=== PATIENT | female | born 1945 | race Caucasian/White ===

== ENCOUNTER → 2017-04-22 | Outpatient (CLI) | payer OTHER, MEDICARE | LOC: BHFA 13:00 | PROVIDERS: ATTEND Internal Medicine Cardiovascular Disease | DX: I48.91 Unspecified atrial fibrillation (principal) | CPT/HCPCS: 78452; 93017; A9500; J2785 ==

== ENCOUNTER → 2017-04-26 | Outpatient (CLI) | payer OTHER, MEDICARE | LOC: FIMAGING 12:49 | PROVIDERS: ATTEND Family Medicine | DX: Z12.31 Encounter for screening mammogram for malignant neoplasm of breast (principal); Z80.3 Family history of malignant neoplasm of breast | CPT/HCPCS: G0202 ==

== ENCOUNTER → 2017-08-30 | Outpatient (CLI) | payer OTHER, MEDICARE | LOC: BHFA 15:30 | PROVIDERS: ATTEND Internal Medicine Interventional Cardiology | DX: R09.89 Other specified symptoms and signs involving the circulatory and respiratory systems (principal) ==

== ENCOUNTER 2018-01-17 11:50 | Inpatient (IN) | payer OTHER, MEDICARE ==
--- NOTE | 2018-01-17 12:13 | CPEKG ---
Heart Rate: 88 RR Interval: 682 P-R Interval: 160 QRSD Interval: 86 QT Interval: 372 QTC Interval: 450 P [place]: 70 QRS [place]: -40 T Wave [place]: 60 EKG Severity - OTHERWISE NORMAL ECG - EKG Impression: SINUS RHYTHM EKG Impression: LEFT AXIS DEVIATION Electronically Signed By: Cassy Encinas 17-Jan-2018 16:06:55
--- NOTE | 2018-01-17 12:30 | EDPHY ---
HPI/HX/ROS/PE/MDM Narrative: CHIEF COMPLAINT: Palpitations HISTORY OF PRESENT ILLNESS: This patient is an anticoagulated (Coumadin) 72 year old female complaining of palpitations and frequent diarrhea. She ahs had intermittent vomiting and diarrhea for several months. On Tuesday, she began to have worsening diarrhea with associated generalized abdominal cramping. She states "it smells chemically and I think it's my pills". She denies any new medications or recent antibiotic use. No hematochezia or melena. No known ill contacts. No unusual foods. She has appointment with a GI specialist scheduled for this . Yesterday, she noted heart palpitations and states "my heart was fluttery and I knew it was wrong". This episode lasted about two hours. Additionally, the patient was noted to be mildly hypoxic at triage. She denies any cough or shortness of breath. She generally does not wear home oxygen, and denies history of asthma or COPD. No fever, chills, chest pain, shortness of breath, palpitations, urinary complaints, headache, lightheadedness. REVIEW OF SYSTEMS: Aside from elements discussed in the HPI, a comprehensive 10-point review of systems was reviewed and is negative. PAST MEDICAL HISTORY: Atrial fibrillation s/p ablation. Hypertension. Cholecystectomy. SOCIAL HISTORY: Friend at bedside. Lives in [place]. PCP Dr. Salmon. Marine Design Engineer Dr. Galarza. VITAL SIGNS: Reviewed by me GENERAL: Well-developed, well-nourished, resting comfortably in no respiratory distress. HEENT: Atraumatic. Eyes: Left pupil abnormal. No icterus, no injection. Mouth: dry mucous membranes. No erythema or lesions. Neck: supple with no adenopathy. LUNGS: Clear to auscultation bilaterally, no wheezes, rhonchi or rales. CARDIAC: Regular rate and rhythm, no rubs, murmurs or gallops. ABDOMEN: Soft, nontender, nondistended, bowel sounds normal. BACK: No CVA tenderness. EXTREMITIES: No trauma. No edema. Range of motion is normal throughout. NEURO: Alert and oriented, grossly nonfocal. SKIN: Warm and dry, no rash. PSYCHIATRIC: Normal mentation, no agitation. Portions of this note were transcribed by a medical instructor. I personally performed a history, physical exam, medical decision making, and confirmed accuracy of information the transcribed note. ED Course: 72 y/o female presents with palpitations and diarrhea. Plan for EKG, chest x-ray , labs including CBC, chemistries, troponin. Of note, patient has been hypoxic on several occasions while in the emergency department. She has no history of pulmonary disease, no history of pulmonary embolism. She is on Coumadin. Patient is a significantly elevated white blood cell count at 17,000. Plan for CT abdomen to evaluate for diverticulitis or intra-abdominal abscesses. 12-LEAD EKG: Please see the full report in [facility]. My interpretation: Sinus rhythm rate 88. LAD. No PVCs or PACs. Chest x-ray: Interpreted as some worsening of the patient's underlying interstitial lung findings. Patient denies history of asthma, COPD, interstitial lung disease. She denies taking amiodarone. 14:[address] Canales, radiologist. CT abdomen shows mild thickening of the terminal ileum and ascending colon suggesting a low level enterocolitis. Sigmoid diverticulosis. On re-examination the patient reports feeling dehydrated. She received a L of normal saline. Trial of room air was again performed in the patient again desaturates to 86%. D-dimer is negative and in fact the patient's INR is excessively high at 5.07. Course was discussed with Dr. Muñoz. Patient will be admitted to the hospital for hypoxemia as well as ongoing diarrhea. Respiratory pathogen panel is pending at this time. MDM: Differential diagnosis for the patient's diarrhea was considered including but not limited to gastroenteritis, colitis, diverticulitis, bacterial dysentery, viral diarrhea, medication effect, and malabsorption syndrome. Differential diagnoses for the patient's hypoxemia was considered including but not limited to pneumonia, interstitial lung disease, reactive airways disease, pulmonary embolism, cardiac causes. - Data Points Imaging Results: Imaging Impressions Chest X-Ray 01/17/18 13:08 Impression: Interstitial lung disease, stable versus slightly worse than 23 months ago. If clinically indicated, consider noncontrast high-resolution chest CT to better characterize and quantify the interstitial lung disease. Was this patient on amiodarone? Abdomen CT 01/17/18 13:09 Impression: 1. Mild thickening of the terminal ileum and ascending colon suggesting a low level enterocolitis. 2. Sigmoid diverticulosis without diverticulitis. 3. Normal appendix. No renal calculus. Findings were communicated by telephone with Dr. Cassy Encinas MD at 2017 14:28 Imaging: Discussed imaging studies w/ house calls nurse practitioner Radiologist Laboratory Results: Laboratory Results 01/17/18 12:21 01/17/18 12:21 01/17/18 01/17/18 01/17/18 12:29 12:21 12:21 WBC 17.56 10^3/uL H 10^3/uL (3.80-9.50) RBC 3.50 10^6/uL L 10^6/uL (4.18-5.33) Hgb 12.0 g/dL L g/dL (12.6-16.3) Hct 32.7 % L % (38.0-47.0) MCV 93.4 fL fL (81.5-99.8) MCH 34.3 pg H pg (27.9-34.1) MCHC 36.7 g/dL g/dL (32.4-36.7) RDW 15.6 % H % (11.5-15.2) Plt Count 290 10^3/uL 10^3/uL (150-400) MPV 8.5 fL L fL (8.7-11.7) Neut % (Auto) 88.5 % H % (39.3-74.2) Lymph % (Auto) 5.4 % L % (15.0-45.0) Granite % (Auto) 4.6 % % (4.5-13.0) Eos % (Auto) 0.8 % % (0.6-7.6) Baso % (Auto) 0.2 % L % (0.3-1.7) Nucleat RBC Rel Count 0.0 % % (0.0-0.2) Absolute Neuts (auto) 15.54 10^3/uL H 10^3/uL (1.70-6.50) Absolute Lymphs (auto) 0.94 10^3/uL L 10^3/uL (1.00-3.00) Absolute Monos (auto) 0.81 10^3/uL H 10^3/uL (0.30-0.80) Absolute Eos (auto) 0.14 10^3/uL 10^3/uL (0.03-0.40) Absolute Basos (auto) 0.04 10^3/uL 10^3/uL (0.02-0.10) Absolute Nucleated RBC 0.00 10^3/uL 10^3/uL (0-0.01) Immature Gran % 0.5 % % (0.0-1.1) Immature Gran # 0.09 10^3/uL 10^3/uL (0.00-0.10) PT Pending INR Pending D-Dimer < 0.27 ug/mLFEU ug/mLFEU (0.00-0.50) Sodium 140 mEq/L mEq/L (135-145) Potassium 4.0 mEq/L mEq/L (3.5-5.2) Chloride 103 mEq/L mEq/L (97-110) Carbon Dioxide 26 mEq/l mEq/l (22-31) Anion Gap 11 mEq/L mEq/L (8-16) BUN 8 mg/dL mg/dL (7-23) Creatinine 0.7 mg/dL mg/dL (0.6-1.0) Estimated GFR > 60 Glucose 233 mg/dL H mg/dL (70-100) Calcium 8.9 mg/dL mg/dL (8.5-10.4) Troponin I < 0.012 ng/mL ng/mL (0.000-0.034) General Time Seen by Provider: 01/17/18 12:11 Initial Vital Signs: Initial Vital Signs Temperature (C) 37 C 01/17/18 11:53 Heart Rate 101 H 01/17/18 11:53 Respiratory Rate 18 01/17/18 11:53 Blood Pressure 183/75 H 01/17/18 11:53 O2 Sat (%) 91 L 01/17/18 11:53 O2 Delivery Mode Room Air O2 (L/minute) 2 Allergies/Adverse Reactions: latex Allergy (Verified 01/17/18 16:51) Rash Home Medications: Medication Instructions Recorded Atorvastatin Calcium [Lipitor 20 20 mg PO DAILY 01/17/18 mg (*)] Brimonidine 0.2% [ALPHAGAN 0.2% 1 drops LEFTEYE BID 01/17/18 (RX)] Citalopram [CeleXA] 20 mg PO DAILY 01/17/18 Diltiazem HCl [Cartia XT 240mg] 240 mg PO DAILY 01/17/18 Folic Acid [Folic Acid 1 MG (*)] 1 mg PO DAILY 01/17/18 Glimepiride [Amaryl] 4 mg PO BID 01/17/18 Herbals/Supplements -Info Only 1 ea PO DAILY 01/17/18 Losartan Potassium [Cozaar 50 mg 50 mg PO DAILY 01/17/18 (*)] Omeprazole 40 mg PO DAILY 01/17/18 Propafenone HCl [Rythmol 150mg (*)] 150 mg PO TID 01/17/18 Warfarin Sodium 3 mg PO WE@16 01/17/18 Warfarin Sodium [Coumadin] 6 mg PO SUMOTUTHFRSA@16 01/17/18 metFORMIN HCL [Glucophage 500 mg 500 mg PO BID 01/17/18 (*)] Departure - Departure Disposition: [facility] Acute Clinical Impression: Palpitations, Hypoxia Diarrhea Qualifiers: Diarrhea type: unspecified type Qualified Code(s): R19.7 - Diarrhea, unspecified Condition: Good Report Scribed for: Cassy Encinas Report Scribed by: Anel Lowe Date of Report: 01/17/18 Time of Report: 12:30
[2018-01-17 12:39] LABS: PLATELET COUNT 290 10^3/uL (150-400)
[2018-01-17] MEDS ORDERED: IOPAMIDOL (ISOVUE-300) 100 ML BTL ONE (13:20)
[2018-01-17] MEDS ORDERED: ALBUTEROL 3 ML DEYVIAL IH ONE (14:51)
[2018-01-17] MEDS ORDERED: NS 1,000 ML IV ONE (14:51)
[2018-01-17 16:06] LABS: PROTIME(PATIENT) 46.3 SEC (12.0-15.0)
[2018-01-17] MEDS ORDERED: ACETAMINOPHEN 325 MG TAB PO PRN (16:12)
[2018-01-17] MEDS ORDERED: ONDANSETRON DISINTEGRATING 4 MG TAB PO PRN (16:12)
[2018-01-17] MEDS ORDERED: ONDANSETRON 4 MG/2 ML VIAL IVP PRN (16:12)
[2018-01-17 16:24] LABS: INR 5.07 (0.83-1.16)
--- NOTE | 2018-01-17 17:42 | GHP ---
[f rep st] HISTORY AND PHYSICAL DATE OF ADMISSION: 01/17/2018 CHIEF COMPLAINT: Palpitations, nausea, vomiting. HISTORY OF PRESENT ILLNESS: A 72-year-old female with a history of paroxysmal atrial fibrillation on anticoagulation, hypertension, hyperlipidemia, IBS, presenting with palpitations. She says she has had intermittent diarrhea for years that was controlled by Imodium. However, the last few months, it has not been responding. She has 1-2 loose stools a day. The main reason she presented today was for palpitations starting last night when she was at rest. She felt short of breath with it but not dizzy. Denies any chest pain. No lower extremity edema or PND. She has always propped herself up during sleep because it feels better. A week ago, she felt feverish and achy but did not take a temperature. She has had intermittent bilious vomiting since Tuesday. She has had a dry cough. When she walks her dog about a half a block, she does not experience chest pain , shortness of breath, or palpitations. Decreased p.o. intake over the last few days. She had a colonoscopy/EGD in [place] approximately 5 years ago, said she had a polyp. She is supposed to see GI this week on . In the emergency room , she was found to be hypoxic to 84%. PAST MEDICAL HISTORY: Paroxysmal atrial fibrillation, on anticoagulation. Hypertension, hyperlipidemia, left carotid bruit, IBS, diabetes. PAST SURGICAL HISTORY: Cholecystectomy, ablation, breast reduction, eye surgery , tonsillectomy, and tubal ligation. SOCIAL HISTORY: Lives in [place]. Has 2 dogs but no birds. Here with her neighbor. 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 She smoked for 5 years less than a pack a day in the 1960s. No alcohol or illicits. FAMILY HISTORY: Father with heart failure and coronary disease. Mother with rheumatic heart disease, hypertension, stroke. PHYSICAL EXAM: VITAL SIGNS: Temperature 37, blood pressure 183/75, heart rates 71-101, respiratory 18, 84% on room air. Repeat was 91% and then 95% on 2 L. GENERAL: Obese female sitting in bed, no acute distress. HEENT: PERRLA. EOMI. Oropharynx clear. Dry mucous membranes. CV: Regular rate and rhythm. No murmurs, gallops, or rubs. No lower extremity edema. LUNGS: Crackles, left base, no wheezing. ABDOMEN: Obese, soft, nontender, nondistended. Positive bowel sounds. : No Wilcox. MUSCULOSKELETAL: 5/5 upper and lower extremity strength. NEUROLOGIC: 2 through 12 intact. PSYCHIATRIC: Alert oriented x3 next. LABS: WBC 17, hemoglobin 12, hematocrit 32, platelets 290. Sodium 140, potassium 4.0, chloride 103, carbon dioxide 26, creatinine 0.7, glucose 233, calcium 8.9. Troponin less than 0.012. INR is 5.07 Chest x-ray personally reviewed by me, peribronchial cuffing. No edema or opacity. Radiology read states progressive interstitial lung disease. Abdominal CT, mild thickening of the terminal ileum and ascending colon, suggestive of enterocolitis. Sigmoid diverticulosis without diverticulitis. EKG personally reviewed by me, normal sinus rhythm. ASSESSMENT AND PLAN: 1. Hypoxia. Unclear if this is new or chronic. Has minimal tobacco history and no toxic exposures. Radiology read CXR as ILD. No symptoms of pneumonia besides a dry cough; afebrile.Respiratory panel pending. May be atelectasis with recent illness and in bed more. If not improved, could consider a noncontrast CT. Will see how things go overnight. A BNP is pending. 2. Palpitations. Likely due to dehydration with nausea, vomiting, and decreased p.o. intake. Rate-controlled here. No evidence of infection on her CT. 3. Diarrhea: has been chronic. History of irritable bowel syndrome. She had a normal colonoscopy/EGD 5 years ago. She is to follow up with her warehouse delivery manager here this week. GI panel pending. 4. Hypertension. Resume home medications. 5. Paroxysmal atrial fibrillation. Continue Rythmol and diltiazem. Hold Coumadin with elevated INR. 6. Supratherapeutic INR. No evidence of bleeding. Likely due to recent decreased p.o. intake. Not taking any new medications. Will monitor. 7. Fatigue. She endorses over the last several months. Check a TSH. 8. Diet. Regular. 9. Deep vein thrombosis prophylaxis. She is on Coumadin. 10. Disposition. Patient warrants observation admission, given hypoxia, leukocytosis warranting intravenous fluids, and possible imaging. Can likely discharge tomorrow. /[id number]/MODL MTDD
[2018-01-17] MEDS: metFORMIN HCL 500 MG TAB PO SCH (17:50)
[2018-01-17] MEDS ORDERED: BRIMONIDINE 0.2% 5 ML OPHT.BTL LEFTEYE SCH (21:00)
[2018-01-17] MEDS: GLIMEPIRIDE 2 MG TAB PO SCH (21:49)
[2018-01-17] MEDS: PROPAFENONE HCL 150 MG TAB PO SCH (21:49)
[2018-01-18] MEDS: MELATONIN 3 MG TAB PO PRN ×2 (00:03→21:12)
[2018-01-18 05:49] LABS: PROTIME(PATIENT) 55.3 SEC (12.0-15.0)
[2018-01-18 05:50] LABS: INR 6.4 (0.83-1.16)
[2018-01-18] MEDS: metFORMIN HCL 500 MG TAB PO SCH ×2 (08:43→16:07)
[2018-01-18] MEDS ORDERED: Herbals/Supplements -Info Only PO SCH (09:00)
[2018-01-18] MEDS: PANTOPRAZOLE SODIUM 40 MG TAB PO SCH (09:48)
[2018-01-18] MEDS: PROPAFENONE HCL 150 MG TAB PO SCH ×3 (09:48→21:11)
[2018-01-18] MEDS: DILTIAZEM XR 240 MG CAP PO SCH (09:48)
[2018-01-18] MEDS: ATORVASTATIN CALCIUM 20 MG TAB PO SCH (09:48)
[2018-01-18] MEDS: CITALOPRAM 20 MG TAB PO SCH (09:48)
[2018-01-18] MEDS: LOSARTAN POTASSIUM 50 MG TAB PO SCH (09:48)
[2018-01-18] MEDS: GLIMEPIRIDE 2 MG TAB PO SCH ×2 (09:48→21:12)
[2018-01-18] MEDS: FOLIC ACID 1 MG TAB PO SCH (09:48)
[2018-01-18] MEDS: BRIMONIDINE 0.2% 5 ML OPHT.BTL LEFTEYE SCH ×2 (09:49→21:12)
[2018-01-18] MEDS ORDERED: PHYTONADIONE 100 MCG TAB PO ONE (12:18)
--- NOTE | 2018-01-18 15:00 | HOSPPROG ---
Hospitalist Progress Note Assessment/Plan: 72y female with c/o palpitations. First encounter, chart reviewed. #Suprathereputic INR -give 100mcg vit k -recheck in am -unclear etiol #Viral illness -follow -seems to be improving #Diarrhea -intermittent -follow -stable #Enterocolitis -per ct -stable #Acute hypoxemic resp failure -cont supp o2 -titrate off -ILD -consider CT chest high res if not improving #Afib -rate controlled -cont home meds #Dispo -unclear -cont evaluation in hospital -change to inpt -follow labs Subjective: Feeling better. Eager to go home. No pain. Objective: Vital Signs Temp Pulse Resp BP Pulse Ox 37.1 C 72 20 156/83 H 94 01/18/18 11:58 01/18/18 11:58 01/18/18 11:58 01/18/18 11:58 01/18/18 11:58 Laboratory Results 01/18/18 04:28 01/17/18 01/18/18 01/19/18 05:59 05:59 05:59 Intake Total 1150 Balance 1150 PT 55.3 SEC (12.0-15.0) H D 01/18/18 04:28 INR 6.40 (0.83-1.16) H* 01/18/18 04:28 - Physical Exam Constitutional: appears nourished, not in pain, obese Eyes: PERRL, anicteric sclera, EOMI Ears, Nose, Mouth, Throat: moist mucous membranes, hearing normal, ears appear normal Cardiovascular: No JVD, No tachycardia, No edema Respiratory: no respiratory distress, no rales or rhonchi, reduced air movement Gastrointestinal: normoactive bowel sounds, No tenderness, No ascites Skin: warm, normal color, No mottled Musculoskeletal: normal joint ROM, no joint effusions, generalized weakness Neurologic: AAOx3 Psychiatric: interacting appropriately, not anxious, not encephalopathic, thought process linear ICD10 Worksheet Patient Problems: Problems Problem Status Onset Palpitations Acute Diarrhea Acute Hypoxia Acute
--- NOTE | 2018-01-18 16:03 | PDMN ---
Medical Necessity Medical necessity: Change to IP, as of 01/18/18, per [employer]; los >2 mn for ongoing management of supratherapeutic INR of unclear etiology, HTN, viral illness & diarrhea; admit for further workup/ monitoring, Vit K & med management; hx AFIB on AC,HTN, diabetes & IBS; per progress note & order 01/18/18
--- NOTE | 2018-01-18 17:26 | ASMTCMCOM ---
CM Note CM Note Notes: DC needs unclear, pt normally lives alone with her two dogs and is independent in ADLs. ANJALI w/f. DC Plan: TBD Date Signed: 01/18/2018 05:26 PM Electronically Signed By:Alycia Wren RN
[2018-01-19 07:04] VITALS: BP 163/78
[2018-01-19 09:22] LABS: INR 4.29 (0.83-1.16); PROTIME(PATIENT) 40.7 SEC (12.0-15.0)
[2018-01-19] MEDS: BRIMONIDINE 0.2% 5 ML OPHT.BTL LEFTEYE SCH (10:09)
[2018-01-19] MEDS: GLIMEPIRIDE 2 MG TAB PO SCH (10:10)
[2018-01-19] MEDS: DILTIAZEM XR 240 MG CAP PO SCH (10:10)
[2018-01-19] MEDS: PROPAFENONE HCL 150 MG TAB PO SCH (10:10)
[2018-01-19] MEDS: ATORVASTATIN CALCIUM 20 MG TAB PO SCH (10:10)
[2018-01-19] MEDS: PANTOPRAZOLE SODIUM 40 MG TAB PO SCH (10:11)
[2018-01-19] MEDS: CITALOPRAM 20 MG TAB PO SCH (10:11)
[2018-01-19] MEDS: LOSARTAN POTASSIUM 50 MG TAB PO SCH (10:11)
[2018-01-19] MEDS: FOLIC ACID 1 MG TAB PO SCH (10:11)
[2018-01-19] MEDS: metFORMIN HCL 500 MG TAB PO SCH ×2 (10:11→10:17)
--- NOTE | 2018-01-19 12:12 | ASMTCMCOM ---
CM Note CM Note Notes: Spoke w/RN, pt will dc home independent. Friend will come to pick her up and take her home. CM available for any changes. DC Plan: Independent Date Signed: 01/19/2018 12:11 PM Electronically Signed By:Alycia Wren RN
--- NOTE | 2018-01-19 13:49 | GDS ---
[f rep st] DISCHARGE SUMMARY DISCHARGE DIAGNOSES: 1. Supratherapeutic INR. 2. Hypertension. 3. Upper respiratory viral illness. 4. Diarrhea. 5. Enterocolitis. 6. Acute hypoxemic respiratory failure. 7. History of atrial fibrillation. SURGERIES AND PROCEDURES DONE: CT of the abdomen. PHYSICAL EXAM: GENERAL: The patient is alert. VITAL SIGNS: Afebrile at 36.9, pulse 73, respirator y rate is 20, blood pressure is 163/78, she is saturating 90% on room air. I have seen and evaluated the patient on the day of discharge. HOSPITAL COURSE: The patient is a 72-year-old female who presented to the emergency room with compla ints of palpitation. She was evaluated and diagnosed with: 1. Supratherapeutic INR. During this hospitalization, she received 100 mcg of vitamin K. Her INR i s in the 4 range today prior to disposition. She has a home INR monitor which she will utilize on , to evaluate her level. She will follow up with her physician vice president who is in charge of her Co umadin dosing. 2. Upper respiratory viral illness. The patient is feeling significantly better. Her symptoms have resolved. Her leukocytosis is almost within normal limits and she has no further complaints of coug h. 3. Diarrhea. The patient has chronic intermittent diarrhea. This has resolved during this hospital ization. She will follow up with Gastroenterology in the outpatient setting as she was supposed to b efore. 4. Enterocolitis. This is stable per CT scan. 5. Acute hypoxemic respiratory failure. This is in the setting of acute viral illness. Per chest x -ray, the patient does have interstitial lung disease. It is recommended she follow with her primary care physician and consider a CT of her chest in the outpatient setting as well as prophylactic ster oid use. I have discussed this with her and she will follow up with her primary care physician, Dr. Claudia Salmon. 6. Hypertension. Antihypertensive medications have not been added during this hospital course, per the patient's request. She wishes to follow with Dr. Claudia Salmon for further medications and managem ent. This is reasonable at this time. 7. Atrial fibrillation. She is rate controlled. Her home medications have been continued. DISPOSITION: The patient will be discharged home independently. There are no pending studies. Carlos lo will be with her physician vice president as well as her primary care physician, Dr. Claudia Salmon. She will check her INR with her home device on 01/20/2018. DISCHARGE MEDICATIONS: Please refer to EMR form. I have not provided any prescriptions for the reggie ent at time of disposition nor have I adjusted her previously prescribed medications to the best of m y knowledge. I spent greater than 35 minutes in the care, coordination, and management of this patient's dispositi on. /[id number]/MODL
== END 2018-01-19 12:10 | disposition home or self-care (01) | DRG 152 ==
LOC: OBSVTOIN 16:15 → F3E 17:21
PROVIDERS: ADMIT Internal Medicine; ATTEND Internal Medicine
DX: J06.9 Acute upper respiratory infection, unspecified (principal); B97.89 Other viral agents as the cause of diseases classified elsewhere; J96.01 Acute respiratory failure with hypoxia; K52.9 Noninfective gastroenteritis and colitis, unspecified; E86.0 Dehydration; I48.0 Paroxysmal atrial fibrillation; R79.1 Abnormal coagulation profile; T45.515A Adverse effect of anticoagulants, initial encounter; K58.0 Irritable bowel syndrome with diarrhea; I10 Essential (primary) hypertension; E78.5 Hyperlipidemia, unspecified
CPT/HCPCS: G0378; J7613; Q9967

== ENCOUNTER → 2018-02-06 | Outpatient (CLI) | payer OTHER, MEDICARE | LOC: FIMAGING 14:26 | PROVIDERS: ATTEND Internal Medicine | DX: Z09 Encounter for follow-up examination after completed treatment for conditions other than malignant neoplasm (principal); R93.8 Abnormal findings on diagnostic imaging of other specified body structures ==

== ENCOUNTER 2018-10-08 07:24 | Inpatient (IN) | payer OTHER, MEDICARE ==
--- NOTE | 2018-10-08 07:44 | EDPHY ---
HPI/HX/ROS/PE/MDM Narrative: CHIEF COMPLAINT: "My breathing is real shallow" HPI: The patient is a 73 y/o female with a history of atrial fibrillation who arrives with her family member complaining of difficulty breathing that woke her from sleep around 04:00 this morning, about 3.5 hours ago. She felt normal yesterday and woke up this morning feeling unable to catch her breath. She used a home pulse oximeter and found her SpO2 to be 74%. She does not use O2 at home. She mentions some dyspnea with exertion at baseline, but her symptoms are much more severe today and present at rest. She has sporadic coughing while supine, but has not noticed an increase in this recently. She also has an associated mild headache. She denies fever, chest pain, abdominal pain, nausea, vomiting, diarrhea. She's had similar symptoms previously and was admitted January 2018 with a URI and hypoxemia. A chest x-ray at that time showed interstitial lung disease, but the patient reports at a follow up appointment with her PCP they did not uphold this diagnosis. She has not seen a grade teacher. REVIEW OF SYSTEMS: A comprehensive 10 system review of systems is otherwise negative aside from elements mentioned in the history of present illness. PMH: Paroxysmal atrial fibrillation, hypertension, hyperlipidemia, left carotid bruit, IBS, diabetes, cholecystectomy, ablation, breast reduction, eye surgery, tonsillectomy, tubal ligation. Prior medical records reviewed including admission 01/17/18 for palpitations and N/V. SOCIAL HISTORY: Lives in [place]. Family member at bedside. PCP: Dr. Claudia Salmon. PHYSICAL EXAM: General:Patient is alert, sitting upright, mildly tachypneic. SpO2 78% on room air. ENT:Eyes are normal to inspection. ENT inspection normal. Neck: Normal inspection. Full range of motion. Respiratory: Mildly tachypneic and globally decreased air movement. Cardiovascular: Regular rate and rhythm. Strong peripheral pulses. Normal cap refill. Abdomen:The abdomen is nontender to palpation. There are no peritoneal signs. Back: Normal to inspection. No tenderness to palpation. Skin: Normal color. No rash. Warm and dry. Extremities: Normal appearance. Full range of motion. Neuro: Oriented x3. Normal motor function. Normal sensory function. ED Course: This is a 73 y/o female who presents with a 3.5-hour history of acute onset dyspnea that woke her from sleep this morning. Her home pulse oximeter showed 74 % and here she was 78% on room air. A prior admission for a URI and hypoxemia indicated interstitial lung disease on her chest x-ray and recommended prophylactic steroid use; however, the patient reports follow up imaging did not support this diagnosis and she is not being treated for any respiratory disease. She is tachypneic on exam with globally decreased air movement. With 4LPM supplemental O2, her SpO2 is now 92%. Suspect respiratory infection most likely cause for symptoms. Plan for IV, labs, flu swab, chest x-ray. Chest x-ray: airways disease, stable from prior. WBC elevated at 18. Flu swab negative. Reassessed patient and discussed findings. I've found no clear etiology for her symptoms at this time. Due to pronounced hypoxemia, elevated WBC, and ongoing symptoms, I've recommended admission for further care. She agrees with this plan. Spoke with hospitalist service. Dr. Muñoz accepts admission. - Data Points Imaging Results: Imaging Impressions Chest X-Ray 10/08/18 07:31 Impression: 1. Bronchitis/airways disease. 2. Minimal cardiomegaly. No failure. Imaging: I viewed and interpreted images myself Laboratory Results: Laboratory Results 10/08/18 07:49 10/08/18 07:49 10/08/18 10/08/18 10/08/18 08:00 07:49 07:49 WBC RBC Hgb Hct MCV MCH MCHC RDW Plt Count MPV Neut % (Auto) Lymph % (Auto) Hudson % (Auto) Eos % (Auto) Baso % (Auto) Nucleat RBC Rel Count Absolute Neuts (auto) Absolute Lymphs (auto) Absolute Monos (auto) Absolute Eos (auto) Absolute Basos (auto) Absolute Nucleated RBC Immature Gran % Immature Gran # PT 18.7 SEC H SEC (12.0-15.0) INR 1.55 H (0.83-1.16) Sodium 138 mEq/L mEq/L (135-145) Potassium 4.2 mEq/L mEq/L (3.5-5.2) Chloride 106 mEq/L mEq/L (97-110) Carbon Dioxide 26 mEq/l mEq/l (22-31) Anion Gap 6 mEq/L mEq/L (6-14) BUN 11 mg/dL mg/dL (7-23) Creatinine 0.7 mg/dL mg/dL (0.6-1.0) Estimated GFR > 60 Glucose 240 mg/dL H mg/dL (70-100) Calcium 9.2 mg/dL mg/dL (8.5-10.4) Troponin I < 0.012 ng/mL ng/mL (0.000-0.034) NT-Pro-B Natriuret Pep 277 pg/mL pg/mL (0-450) Nasal Influenza A PCR Nasal Influenza B PCR 10/08/18 10/08/18 07:49 07:21 WBC 18.84 10^3/uL H 10^3/uL (3.80-9.50) RBC 3.54 10^6/uL L 10^6/uL (4.18-5.33) Hgb 12.6 g/dL g/dL (12.6-16.3) Hct 34.5 % L % (38.0-47.0) MCV 97.5 fL fL (81.5-99.8) MCH 35.6 pg H pg (27.9-34.1) MCHC 36.5 g/dL g/dL (32.4-36.7) RDW 15.7 % H % (11.5-15.2) Plt Count 265 10^3/uL 10^3/uL (150-400) MPV 8.1 fL L fL (8.7-11.7) Neut % (Auto) 86.6 % H % (39.3-74.2) Lymph % (Auto) 6.8 % L % (15.0-45.0) Hudson % (Auto) 4.6 % % (4.5-13.0) Eos % (Auto) 1.3 % % (0.6-7.6) Baso % (Auto) 0.3 % % (0.3-1.7) Nucleat RBC Rel Count 0.0 % % (0.0-0.2) Absolute Neuts (auto) 16.33 10^3/uL H 10^3/uL (1.70-6.50) Absolute Lymphs (auto) 1.28 10^3/uL 10^3/uL (1.00-3.00) Absolute Monos (auto) 0.86 10^3/uL H 10^3/uL (0.30-0.80) Absolute Eos (auto) 0.24 10^3/uL 10^3/uL (0.03-0.40) Absolute Basos (auto) 0.06 10^3/uL 10^3/uL (0.02-0.10) Absolute Nucleated RBC 0.00 10^3/uL 10^3/uL (0-0.01) Immature Gran % 0.4 % % (0.0-1.1) Immature Gran # 0.07 10^3/uL 10^3/uL (0.00-0.10) PT INR Sodium Potassium Chloride Carbon Dioxide Anion Gap BUN Creatinine Estimated GFR Glucose Calcium Troponin I NT-Pro-B Natriuret Pep Nasal Influenza A PCR NEGATIVE FOR FLU A (NEGATIVE) Nasal Influenza B PCR NEGATIVE FOR FLU B (NEGATIVE) General Time Seen by Provider: 10/08/18 07:30 Initial Vital Signs: Initial Vital Signs Temperature (C) 36.7 C 10/08/18 07:24 Heart Rate 75 10/08/18 07:24 Respiratory Rate 18 10/08/18 07:24 Blood Pressure 184/69 H 10/08/18 07:24 O2 Sat (%) 78 L 10/08/18 07:24 O2 Delivery Mode Nasal Cannula O2 (L/minute) 2 Allergies/Adverse Reactions: latex Allergy (Verified 10/08/18 07:24) Rash Home Medications: Medication Instructions Recorded Atorvastatin Calcium [Lipitor 20 20 mg PO DAILY 01/17/18 mg (*)] Brimonidine 0.2% [Alphagan 0.2%] 1 drops LEFTEYE BID 01/17/18 Citalopram [CeleXA 20 MG] 20 mg PO DAILY 01/17/18 Diltiazem HCl [Cartia XT 240mg] 240 mg PO DAILY 01/17/18 Folic Acid [Folic Acid 1 MG (*)] 1 mg PO DAILY 01/17/18 Glimepiride [Amaryl] 4 mg PO BID 01/17/18 Herbals/Supplements -Info Only 1 ea PO DAILY 01/17/18 Losartan Potassium [Cozaar 50 mg 50 mg PO DAILY 01/17/18 (*)] Omeprazole 40 mg PO DAILY 01/17/18 Propafenone HCl [Rythmol 150mg (*)] 150 mg PO TID 01/17/18 Warfarin Sodium 3 mg PO WE@16 01/17/18 Warfarin Sodium [Coumadin] 6 mg PO SUMOTUTHFRSA@16 01/17/18 metFORMIN HCL [Glucophage 500 mg 500 mg PO BID 01/17/18 (*)] Acetaminophen [Tylenol 325mg (*)] 650 mg PO Q4HRS PRN tab 01/19/18 Departure - Departure Disposition: [facility] Inpatient Acute Clinical Impression: Hypoxemia Dyspnea Qualifiers: Dyspnea type: shortness of breath Qualified Code(s): R06.02 - Shortness of breath; R06.00 - Dyspnea, unspecified; R06.01 - Orthopnea Condition: Fair Referrals: Claudia Salmon MD [Primary Care Provider] - As per Instructions Report Scribed for: Mauricio Coley Report Scribed by: Genet Allison Date of Report: 10/08/18 Time of Report: 07:54 Physician Review and Approval Statement: Portions of this note were transcribed by an ED scribe. I personally performed the history, physical exam, and medical decision making; and confirm the accuracy of the information in the transcribed note.
[2018-10-08 08:04] LABS: PLATELET COUNT 265 10^3/uL (150-400)
[2018-10-08 08:13] LABS: INR 1.55 (0.83-1.16); PROTIME(PATIENT) 18.7 SEC (12.0-15.0)
[2018-10-08] MEDS ORDERED: ONDANSETRON 4 MG/2 ML VIAL IVP PRN (09:24)
[2018-10-08] MEDS ORDERED: ONDANSETRON DISINTEGRATING 4 MG TAB PO PRN (09:24)
[2018-10-08] MEDS ORDERED: LOPERAMIDE HCL 2 MG CAP PO PRN (12:49)
[2018-10-08] MEDS: ACETAMINOPHEN 325 MG TAB PO PRN (13:31)
--- NOTE | 2018-10-08 13:34 | GHP ---
DATE OF ADMISSION: 10/08/2018 CHIEF COMPLAINT: Shortness of breath, hypoxia. HISTORY OF PRESENT ILLNESS: A 73-year-old female with paroxysmal atrial fibrillation, hypertension, hyperlipidemia, presenting with shortness of breath. She woke up at 4 a.m. this morning to go to the restroom and when walking back to bed, she was unable to catch her breath. She checked her home pulse oximeter and oxygen saturation was 74. She does not use oxygen. She has had a dry cough for 1 month and a runny nose. No fevers, chills, or sweats. Denies lower extremity edema, PND, or pillow orthopnea. She walks her dog daily a half a block, does not have shortness of breath or chest pain with that. She was admitted in January 2018 with URI and hypoxemia. At that time, there was a question of ILD. She did not follow up with a web application developer. No recent travel. Does not have any exotic pets or birds. No past work exposures. REVIEW OF SYSTEMS: I completed 10-point review of systems, negative, except as noted per HPI. PAST MEDICAL HISTORY: Paroxysmal atrial fibrillation, hypertension, hyperlipidemia, left carotid bruit, IBS, diabetes. PAST SURGICAL HISTORY: Cholecystectomy, cardiac ablation, breast reduction, eye surgery, tonsillectomy, tubal ligation. FAMILY HISTORY: Father with CHF, coronary disease. Mom rheumatic heart disease. SOCIAL HISTORY: Lives in [place]. With a social smoker in the 60s. 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 Worked for [employer]. No metal or inhalant exposure. No birds. ALLERGIES: Latex. HOME MEDICATIONS: Melatonin, loperamide as needed, Coumadin 6 mg Tuesday, Tuesday, Tuesday, 3 every other day, metformin 500 mg b.i.d., Rythmol 150 mg b.i.d., omeprazole 40 daily, losartan 50 mg daily, herbal supplement, Amaryl 4 mg b.i.d., folic acid, diltiazem 240 mg daily, citalopram 20 mg daily, Alphagan eye drops, atorvastatin 20 mg daily, Tylenol. PHYSICAL EXAMINATION: VITAL SIGNS: Temperature 36.7, blood pressure is 159/85 , heart rate in the 70s, respirations 18, 92% on 2 L, 78% on room air. GENERAL : She is obese, but no in acute distress. HEENT: PERRLA. Moist mucous membranes. CV: Regular rate and rhythm. No murmurs, gallops, or rubs. No lower extremity edema and edema. LUNGS: Diminished throughout, but no wheezes or crackles. ABDOMEN: Obese, soft, nontender, nondistended. Positive bowel sounds. : No Wilcox. MUSCULOSKELETAL: 5/5 upper and lower extremity strength. NEUROLOGIC: 2 through 12 intact. PSYCH: Alert and oriented x3. LABORATORY/IMAGING: WBC is 18, hemoglobin 12, hematocrit 34, platelets 265. INR is 1.5. D-dimer 0.27. Sodium 138, potassium 4.2, chloride 106, carbon dioxide 26, creatinine 0.7, glucose 240, calcium 9.2. Troponin less than 0.012. BNP is 277. Negative for influenza. Negative respiratory panel. Chest x-ray personally reviewed by me no opacity or effusion. EKG is pending. ASSESSMENT/PLAN: 1. Acute hypoxic respiratory failure: Unclear etiology. No evidence of pneumonia on x-ray. Negative respiratory panel. Denies fevers or other infectious symptoms at home. Initial troponin negative. An EKG is pending. BNP is normal. Reviewed [facility] records and she had a normal Lexiscan nuclear stress in April of 2017. We will check an ABG. Echocardiogram for shunt. Discussed with Dr. Siddiqui who will see in clinic for formal PFTs and CT. 2. Leukocytosis: She is afebrile. No evidence of pneumonia. Denies other infectious symptoms. May be reactive or due to dehydration. Will repeat. 3. Paroxysmal atrial fibrillation: NSR. Coumadin; INR is subtherapeutic. 4. Hypertension. Resume home medications. 5. Hyperlipidemia: Statin. 6. Irritable bowel syndrome. Loperamide as needed. 7. Diabetes. Metformin and Amaryl. 8. Diet: Regular. 9. Deep venous thrombosis prophylaxis: On Coumadin. DISPOSITION: Patient warrants observation admission given acute hypoxia warranting further evaluation with echo, possible CT scan. /[id number]/MODL MTDD
[2018-10-08] MEDS ORDERED: WARFARIN SODIUM 3 MG TAB PO SCH (16:00)
[2018-10-08] MEDS: PROPAFENONE HCL 150 MG TAB PO SCH (20:52)
[2018-10-08] MEDS: MELATONIN 3 MG TAB PO SCH (20:52)
[2018-10-08] MEDS: metFORMIN HCL 500 MG TAB PO SCH (20:52)
[2018-10-08] MEDS: GLIMEPIRIDE 2 MG TAB PO SCH (20:52)
[2018-10-08] MEDS: BRIMONIDINE 0.2% 5 ML OPHT.BTL LEFTEYE SCH (22:33)
[2018-10-09 05:07] LABS: INR 1.75 (0.83-1.16); PROTIME(PATIENT) 20.5 SEC (12.0-15.0)
[2018-10-09] MEDS ORDERED: Herbals/Supplements -Info Only PO SCH (09:00)
--- NOTE | 2018-10-09 09:55 | ASMTCMCOM ---
CM Note CM Note Notes: Pt is a 73 y/o female admitted for hypoxia and shortness of breath. It is uncertain if pt will have any d/c needs at this time. No therapies ordered. CM to follow. Plan: TBD Date Signed: 10/09/2018 09:54 AM Electronically Signed By:STEPHANIE Hernandez
[2018-10-09] MEDS: CITALOPRAM 20 MG TAB PO SCH (10:13)
[2018-10-09] MEDS: PROPAFENONE HCL 150 MG TAB PO SCH ×2 (10:13→20:59)
[2018-10-09] MEDS: metFORMIN HCL 500 MG TAB PO SCH ×2 (10:13→20:59)
[2018-10-09] MEDS: DILTIAZEM XR 240 MG CAP PO SCH (10:13)
[2018-10-09] MEDS: LOSARTAN POTASSIUM 50 MG TAB PO SCH (10:13)
[2018-10-09] MEDS: FOLIC ACID 1 MG TAB PO SCH (10:13)
[2018-10-09] MEDS: ATORVASTATIN CALCIUM 20 MG TAB PO SCH (10:13)
[2018-10-09] MEDS: PANTOPRAZOLE SODIUM 40 MG TAB PO SCH (10:13)
[2018-10-09] MEDS: GLIMEPIRIDE 2 MG TAB PO SCH ×2 (10:14→20:59)
[2018-10-09] MEDS: BRIMONIDINE 0.2% 5 ML OPHT.BTL LEFTEYE SCH ×2 (10:29→20:59)
--- NOTE | 2018-10-09 11:03 | ECHO ---
[email or web address] [address] Main: [phone] Fax: Transthoracic Echocardiogram Name: SIMEON CHAPPELL MR#: [id number] Study Date: 10/09/2018 Study Time: 09:31 AM Date of : 1945 Age: 73 year(s) Height: 157.5 cm (62 in.) Weight: 78.93 kg (174 lb.) BSA: 1.8 m2 Gender: Female Examination: Echo Indication: Hypoxia/SOB Image Quality: Good Contrast: Requested by: Kori Muñoz BP: 176 mmHg/94 mmHg Heart Rate: Rhythm: Indication: Hypoxia/SOB Procedure Staff Jukebox Routeman: Judith Reina RDCS Reading Physician: Jean Henderson MD Requesting Provider: Conclusions: Mild concentric LV hypertrophy. Normal global systolic LV function. The ejection fraction is estimated to be 70-75 %. Mild mitral valve leaflet calcification is present. Trivial mitral valve regurgitation. Trivial tricuspid valve regurgitation. Measurements: Chambers Valvular Assessment AV/MV Valvular Assessment TV/PV Normal Normal Normal Name Value Range Name Value Range Name Value Range Ao Tori (MM): 3.1 cm (2.2 cm-3.7 AV Vmax: 1.34 m/s (1 m/s-1.7 TR Vmax: 2.46 mm/s ( - ) cm) m/s) TR PGmax: 24 mmHg ( - ) IVSd (2D): 0.7 cm (0.6 cm-1.1 AV meanP mmHg ( - ) syst. PAP: 29 mmHg ( - ) cm) MV E Vmax: 1.08 m/s ( - ) LVDd (2D): 4.6 cm (3.9 cm-5.3 MV A Vmax: 1.32 m/s ( - ) cm) MV E/A: 0.82 ( - ) LVDs (2D): 2.7 cm (2.1 cm-4 cm) LVPWd (2D): 1.1 cm ( - ) LVEF (BP): 74 % (>=55 %) EF Range: 70-75 % Continued Measurements: Chambers Valvular Assessment AV/MV Valvular Assessment TV/PV Name Value Name Value Name Value LADs: 3.3 cm MV E' Septal: 0.07 m/s CVP (est.): 5 mmHg LADs Lon.6 cm MV E/E' Septal: 16.00 LA Area: 18.8 cm2 MV E/E' Lateral: 15.40 Patient: SIMEON CHAPPELL Study Date: 10/09/2018 Page 1 of 2 09:31 AM LA Volume: 55 ml LA Volume Index: 30.6 ml/m2 Additional Vessels Name Value Ao Ascendin.3 cm Findings: Left Ventricle: Normal size left ventricle. Mild concentric LV hypertrophy. Normal global systolic LV function. The ejection fraction is estimated to be 70-75 %. No regional wall motion abnormality. Right Ventricle: Normal size right ventricle. Left Atrium: The left atrium is mildly dilated. Right Atrium: The right atrium is normal in size. Mitral Valve: Mild mitral valve leaflet calcification is present. Trivial mitral valve regurgitation. Aortic Valve: The aortic valve is normal in appearance and function. The aortic valve is tri-leaflet. Tricuspid Valve: The tricuspid valve is normal in appearance and function. Trivial tricuspid valve regurgitation. Pulmonic Valve: The pulmonic valve is normal in appearance and function. Trivial pulmonic valve regurgitation. Aorta: The aorta is normal. Pericardium: No pericardial effusion. There is pericardial fat. (No Signature Object) Patient: SIMEON CHAPPELL Study Date: 10/09/2018 Page 2 of 2 09:31 AM [id number]
--- NOTE | 2018-10-09 15:13 | HOSPPROG ---
Hospitalist Progress Note Assessment/Plan: [facility] Patient Name: SIMEON CHAPPELL Rpt#: [id number] Unit Number: [id number] Attending/ER Physician: Kori Muñoz MD Patient Type: ADM Jenny Adm Date/Source: 10/08/18 EMR Discharge Date: Primary Carrier: MEDICARE INPATIENT A 73-year-old female with paroxysmal atrial fibrillation, hypertension, hyperlipidemia, presenting with shortness of breath. She woke up at 4 a.m. to go to the restroom and when walking back to bed, she was unable to catch her breath. She checked her home pulse oximeter and oxygen saturation was 74. She does not use oxygen. She was admitted in January 2018 with URI and hypoxemia. At that time, there was a question of ILD. * Acute hypoxic respiratory failure -chest x ray shows bronchitis, no definite pna -negative respiratory panel -BNP is stable -echo shows mild lV hypertrophy, ef of 70-75% -d dimer is stable (she is on Coumadin) -poss ILD -will check PFT's * Leukocytosis: She is afebrile * Paroxysmal atrial fibrillation in normal sinus rhythm: -INR is subtherapeutic, said she checks it weekly and usually is therapeutic * Hypertension. Resume home medications. *Hyperlipidemia: Statin. * Irritable bowel syndrome. Loperamide as needed. * Diabetes. Metformin and Amaryl. *Plan; WBC is trending up-will recheck in the morning to be sure she trends down , will check a procalcitonin. Subjective: Simeon said she is feeling better overall. Objective: Vital Signs Temp Pulse Resp BP Pulse Ox 36.7 C 71 19 151/72 H 94 10/09/18 12:00 10/09/18 12:00 10/09/18 12:00 10/09/18 12:00 10/09/18 12:00 Laboratory Results 10/09/18 04:35 10/08/18 10/09/18 10/10/18 05:59 05:59 05:59 Intake Total 250 Balance 250 PT 20.5 SEC (12.0-15.0) H 10/09/18 04:35 INR 1.75 (0.83-1.16) H 10/09/18 04:35 - Physical Exam Constitutional: no apparent distress, appears nourished, not in pain Eyes: PERRL Ears, Nose, Mouth, Throat: hearing normal Cardiovascular: regular rate and rhythym Respiratory: no respiratory distress Gastrointestinal: normoactive bowel sounds Skin: warm Musculoskeletal: full muscle strength Neurologic: AAOx3 Psychiatric: interacting appropriately ICD10 Worksheet Patient Problems: Problems Problem Status Onset Dyspnea Acute Hypoxemia Acute Diarrhea Acute Hypoxia Acute Palpitations Acute
[2018-10-09] MEDS ORDERED: WARFARIN SODIUM 3 MG TAB PO SCH (16:00)
[2018-10-09] MEDS ORDERED: ALBUTEROL 3 ML DEYVIAL IH ONE (17:30)
--- NOTE | 2018-10-09 17:41 | PDMN ---
Medical Necessity Medical necessity: Pt meets IP criteria as of 10/09/2018 per and MCG PG-RF ( Respiratory Failure GRG); est los > 2 mn for ongoing tx and management of acute hypoxic respiratory failure (72% RA) in the setting of bronchitis with leukocytosis; requiring respiratory support, further workup and serial labs.
[2018-10-09] MEDS: MELATONIN 3 MG TAB PO SCH (23:54)
[2018-10-10] MEDS ORDERED: hydrALAZINE 20 MG/ML VIAL IVP PRN (04:54)
[2018-10-10] MEDS: ACETAMINOPHEN 325 MG TAB PO PRN (05:06)
[2018-10-10 05:47] LABS: PLATELET COUNT 202 10^3/uL (150-400)
[2018-10-10 05:51] LABS: INR 1.88 (0.83-1.16); PROTIME(PATIENT) 21.7 SEC (12.0-15.0)
[2018-10-10] MEDS: PROPAFENONE HCL 150 MG TAB PO SCH (09:30)
[2018-10-10] MEDS: ATORVASTATIN CALCIUM 20 MG TAB PO SCH (09:30)
[2018-10-10] MEDS: CITALOPRAM 20 MG TAB PO SCH (09:30)
[2018-10-10] MEDS: GLIMEPIRIDE 2 MG TAB PO SCH (09:30)
[2018-10-10] MEDS: PANTOPRAZOLE SODIUM 40 MG TAB PO SCH (09:30)
[2018-10-10] MEDS: LOSARTAN POTASSIUM 50 MG TAB PO SCH (09:30)
[2018-10-10] MEDS: FOLIC ACID 1 MG TAB PO SCH (09:30)
[2018-10-10] MEDS: DILTIAZEM XR 240 MG CAP PO SCH (09:31)
[2018-10-10] MEDS: metFORMIN HCL 500 MG TAB PO SCH (09:31)
[2018-10-10] MEDS: BRIMONIDINE 0.2% 5 ML OPHT.BTL LEFTEYE SCH (09:31)
--- NOTE | 2018-10-10 10:52 | ASMTCMCOM ---
CM Note CM Note Notes: Pts case discussed w/ TERRELL Lawson. Pt is up and independent in room. Pt will most likely not have any d/c needs. CM available for changes. Plan: Independent Date Signed: 10/10/2018 10:51 AM Electronically Signed By:STEPHANIE Hernandez
[2018-10-10 12:18] VITALS: BP 139/71
[2018-10-10] MEDS ORDERED: PNEUMOC 13-VAL CONJ-DIP CRM/PF 0.5 ML SYR (PREVNAR 13) IM ONE (13:51)
--- NOTE | 2018-10-10 18:09 | PDDCSUM ---
Discharge Summary Discharge Summary: Robbie Gonzalez was admitted with hypoxia. She was walking at home and felt short of breath and checked her home pulse ox which she says read 74%. In the ER D dimer was negative, CXR did not reveal any infiltrate. BNP was WNL as well. Any echocardiogram was obtained which showed normal LVEF. Patient reportedly was seen previously and there was concern that she had ILD but she never followed up with pulmonology as she was supposed to. She remained with normal oxygen saturations while in hospital. She was set up for follow up with Robbie Siddiqui who would obtain a CT for ILD and obtain PFTs at her outpatient apt. She was discharged in good condition to follow up with Dr. Siddiqui in his clinic. Discharge diagnosis - hypoxia, possibly ILD Disposition- Home independent Follow up- PCP and with Robbie Siddiqui for ILD workup, high res CT chest
--- NOTE | 2018-10-11 15:46 | CPEKG ---
Test Reason : OPEN Blood Pressure : / mmHG Vent. Rate : 076 BPM Atrial Rate : 075 BPM P-R Int : 152 ms QRS Dur : 083 ms QT Int : 405 ms P-R-T Axes : -05 -28 041 degrees QTc Int : 456 ms Sinus rhythm Borderline left axis deviation Abnormal R-wave progression, early transition Minimal ST elevation, consider inferior injury Confirmed by Jacob Taylor ([id number]) on 10/11/2018 3:46:07 PM Referred By: Confirmed By:Jacob Taylor
== END 2018-10-10 14:25 | disposition home or self-care (01) | DRG 189 ==
LOC: F3E 10:24 → OBSVTOIN 10-09 17:27
PROVIDERS: ADMIT Internal Medicine; ATTEND Internal Medicine
DX: J96.01 Acute respiratory failure with hypoxia (principal); J84.9 Interstitial pulmonary disease, unspecified; D72.829 Elevated white blood cell count, unspecified; I48.0 Paroxysmal atrial fibrillation; I10 Essential (primary) hypertension; E78.5 Hyperlipidemia, unspecified; E11.9 Type 2 diabetes mellitus without complications; Z23 Encounter for immunization
CPT/HCPCS: G0009; G0378; J0360; J7613

== ENCOUNTER 2018-10-12 23:18 | Inpatient (IN) | payer OTHER, MEDICARE ==
--- NOTE | 2018-10-12 23:29 | EDPHY ---
H & P Stated Complaint: htn, sob Time Seen by Provider: 10/12/18 23:29 HPI/ROS: HPI CHIEF COMPLAINT: Shortness of breath with recent hospitalization. HISTORY OF PRESENT ILLNESS: Very pleasant 73-year-old female, presents back to the emergency room after she was recently admitted and discharged for shortness of breath. She presents back to the emergency room this evening with shortness of breath. She states that at home she had 85% pulse ox has been feeling short of breath and fatigue. She endorses a cough but nonproductive no wheezing. Denies chest pain. She states that she was admitted on 10/08/18. She presents back with worsening shortness of breath. She reports that she is not as short of breath as she was last time where she reports 74% O2 sat today she reports 85% pulse ox at home. She is due to follow up with pulmonology and have a high-resolution CT of her chest however this is not scheduled till later in the month. Past Medical History: Significant medical history for AFib, hypertension, hyperlipidemia, diabetes, IBS Past Surgical History: Eye surgery, tubal, breast reduction Social History: Denies drugs alcohol tobacco. Family History: Noncontributory ROS REVIEW OF SYSTEMS: 10 Systems were reviewed and negative with the exception of the elements mentioned in the history of present illness. Exam Constitutional nontoxic, triage nursing summary reviewed, vital signs reviewed , awake/alert. Vital signs noted at triage. 91% room air sat. Hypertension. Eyes normal conjunctivae and sclera, EOMI, PERRLA. HENT normal inspection, atraumatic, moist mucus membranes, no epistaxis, neck supple/ no meningismus, no raccoon eyes. Respiratory mildly dyspneic, clear to auscultation bilaterally, normal breath sounds, no respiratory distress, no wheezing. Cardiovascular rate normal, regular rhythm, no murmur, no edema, distal pulses normal. Gastrointestinal soft, non-tender, no rebound, no guarding, normal bowel sounds, no distension, no pulsatile mass. Genitourinary no CVA tenderness. Musculoskeletal no midline vertebral tenderness, full range of motion, no calf swelling, no tenderness of extremities, no meningismus, good pulses, neurovascularly intact. Skin pink, warm, & dry, no rash, skin atraumatic. Neurologic awake, alert and oriented x 3, AAOx3, moves all 4 extremities equally, motor intact, sensory intact, CN II-XII intact, normal cerebellar, normal vision, normal speech. Psychiatric normal mood/affect. Heme/Lymph/Immune no lymphadenopathy. Differential Diagnosis: Differential diagnosis includes but is not limited to: ACS, atypical chest pain, pneumothorax, pneumonia, pulmonary embolism, aortic dissection, congestive heart failure, tumor, musculoskeletal pain, esophageal pain, GERD, peptic ulcer disease, pancreatitis Medical Decision Making: Plan for this patient IV establishment IV fluid bolus , chest x-ray EKG troponin, basic blood work, will review her previous discharge summary, and workup. Most likely plan for supplemental oxygen admission. Re-evaluation: EKG interpretation by me on record in [facility] [employer] system. Impression time of EKG 2344, sinus rhythm rate of 75 no acute ischemia. Subtle T-wave abnormalities V1 V2 V3. Somewhat changed from previous EKG. Plan for patient shortness of breath CT angiogram of the chest rule out pulmonary infiltrate, PE, other lung pathology. CT angiogram chest shows no evidence of PE. However does shows coronary artery disease with calcification along the LAD, thyroid enlargement No pneumonia. Called to me by Dr. Baum. Troponin negative. Plan for hospital admission for dyspnea. 0252: Patient ambulated short distance to the bathroom then went back to her ER room. She is placed on pulse ox as she appeared very labored after getting back from her room and her sat was 76%. She required being placed on supplemental oxygen 2 L and she slowly came up with good waveform from 76% to 92 %. No significant wheezing. Due to this I have ordered her DuoNeb breathing treatment. Will re-evaluate. Additionally plan for admission spoke with the hospitalist service Dr. Briscoe. He accepts Source: Patient - Personal History Current Tetanus Diphtheria and Acellular Pertussis (TDAP): Unsure - Medical/Surgical History Hx Asthma: No Hx Chronic Respiratory Disease: Yes Hx Diabetes: Yes Hx Cardiac Disease: Yes Hx Renal Disease: No Hx Cirrhosis: No Hx Alcoholism: No Hx HIV/AIDS: No Hx Splenectomy or Spleen Trauma: No Other PMH: HTN, Afib, heart ablation, choly, breast reduction, tubal ligation LASER SURGERY WITH STENT IN LEFT EYE , CATARACT SURGERY - Social History Smoking Status: Former smoker Constitutional: Initial Vital Signs Temperature (C) 36.6 C 10/12/18 23:23 Heart Rate 89 10/12/18 23:23 Respiratory Rate 18 10/12/18 23:23 Blood Pressure 172/66 H 10/12/18 23:23 O2 Sat (%) 91 L 10/12/18 23:23 O2 Delivery Mode Nasal Cannula O2 (L/minute) 1 Allergies/Adverse Reactions: latex Allergy (Verified 10/08/18 07:24) Rash Home Medications: Medication Instructions Recorded Atorvastatin Calcium [Lipitor 20 20 mg PO DAILY 01/17/18 mg (*)] Brimonidine 0.2% [Alphagan 0.2%] 1 drops LEFTEYE BID 01/17/18 Citalopram [CeleXA 20 MG] 20 mg PO DAILY 01/17/18 Diltiazem HCl [Cartia XT 240mg] 240 mg PO DAILY 01/17/18 Folic Acid [Folic Acid 1 MG (*)] 1 mg PO DAILY 01/17/18 Glimepiride [Amaryl] 4 mg PO BID 01/17/18 Herbals/Supplements -Info Only 1 ea PO DAILY 01/17/18 Losartan Potassium [Cozaar 50 mg 50 mg PO DAILY 01/17/18 (*)] Omeprazole 40 mg PO DAILY 01/17/18 Propafenone HCl [Rythmol 150mg (*)] 150 mg PO BID 01/17/18 Warfarin Sodium 3 mg PO SUWEFR@1600 01/17/18 Warfarin Sodium [Coumadin] 6 mg PO MOTUTHSA@1600 01/17/18 metFORMIN HCL [Glucophage 500 mg 500 mg PO BIDMEAL 01/17/18 (*)] Acetaminophen [Tylenol 325mg (*)] 650 mg PO Q4HRS PRN tab 01/19/18 Loperamide HCl [Imodium 2 mg (*)] 2 - 4 mg PO PRN PRN 10/08/18 Melatonin [Melatonin 3 MG (*)] 3 mg PO HS 10/08/18 Medical Decision Making - Data Points Laboratory Results: Laboratory Results 10/14/18 04:40 10/13/18 07:48 Medications Given: Acetaminophen (Tylenol) 650 mg PO Q4HRS PRN PRN Reason: Pain, Mild/Fever, Can Take PO Stop: 04/11/19 02:48 Last Admin: 10/14/18 22:00 Dose: 650 mg Atorvastatin Calcium (Lipitor) 20 mg PO DAILY [facility] Stop: 04/12/19 08:59 Last Admin: 10/14/18 10:04 Dose: 20 mg Brimonidine Tartrate (Alphagan 0.2%) 1 drops LEFTEYE BID [facility] Stop: 04/11/19 20:59 Last Admin: 10/14/18 22:02 Dose: 1 drop Citalopram Hydrobromide (Celexa) 20 mg PO DAILY [facility] Stop: 04/11/19 11:14 Last Admin: 10/14/18 10:04 Dose: 20 mg Diltiazem HCl (Dilacor Xr) 240 mg PO DAILY [place] Stop: 04/11/19 11:14 Last Admin: 10/14/18 10:03 Dose: 240 mg Folic Acid (Folic Acid) 1 mg PO DAILY [facility] Stop: 04/11/19 11:14 Last Admin: 10/14/18 10:03 Dose: 1 mg Glimepiride (Amaryl) 4 mg PO BID [facility] Stop: 04/11/19 11:29 Last Admin: 10/14/18 22:00 Dose: 4 mg Loperamide HCl ( Imodium) 2 - 4 mg PO PRN PRN PRN Reason: Diarrhea/Loose Stools Stop: 04/11/19 11:10 Last Admin: 10/14/18 13:45 Dose: 4 mg Losartan Potassium (Cozaar) 50 mg PO DAILY [facility] Stop: 04/11/19 11:14 Last Admin: 10/14/18 10:03 Dose: 50 mg Melatonin (Melatonin) 3 mg PO HS [facility] Stop: 04/11/19 20:59 Last Admin: 10/14/18 22:00 Dose: 3 mg Pantoprazole Sodium (Protonix) 40 mg PO DAILY [place] Stop: 04/12/19 08:59 Last Admin: 10/14/18 10:03 Dose: 40 mg Propafenone HCl (Rythmol) 150 mg PO BID [facility] Stop: 04/11/19 11:14 Last Admin: 10/14/18 22:00 Dose: 150 mg Throat Lozenges (Cepacol Lozenge) 1 ea PO PRN PRN PRN Reason: Sore Throat Stop: 04/11/19 15:13 Last Admin: 10/14/18 22:00 Dose: 1 ea Warfarin Sodium (Coumadin) 6 mg PO MoTuThSa@1600 [facility] Stop: 04/12/19 15:59 Last Admin: 10/14/18 15:38 Dose: 6 mg Warfarin Sodium (Coumadin) 3 mg PO SuWeFr@1600 [facility] Stop: 04/11/19 15:59 Last Admin: 10/13/18 15:34 Dose: 3 mg Discontinued Medications Albuterol/Ipratropium (Duoneb) 3 ml IH EDNOW ONE Stop: 10/13/18 02:53 Last Admin: 10/13/18 03:08 Dose: 3 ml Furosemide (Lasix Injection) 20 mg IVP ONCE ONE Stop: 10/14/18 14:20 Last Admin: 10/14/18 15:38 Dose: 20 mg Sodium Chloride (Ns) 1,000 mls @ 0 mls/hr IV EDNOW ONE; Wide Open PRN Reason: Protocol Stop: 10/12/18 23:37 Last Admin: 10/13/18 00:06 Dose: 1,000 mls Point of Care Test Results: Chemistry 10/12/18 23:55 POC Troponin I 0.02 ng/mL ng/mL (0.00-0.08) Departure - Departure Disposition: [facility] Inpatient Acute Clinical Impression: Dyspnea, ORTEGA (dyspnea on exertion), Hypoxia Condition: Fair
[2018-10-12] MEDS ORDERED: NS 1,000 ML IV ONE (23:36)
[2018-10-13] MEDS ORDERED: IOPAMIDOL (ISOVUE 370) 100 ML BTL IV ONE (00:08)
[2018-10-13 00:15] LABS: PLATELET COUNT 292 10^3/uL (150-400)
[2018-10-13 00:37] LABS: INR 1.66 (0.83-1.16); PROTIME(PATIENT) 19.7 SEC (12.0-15.0)
[2018-10-13] MEDS ORDERED: ONDANSETRON DISINTEGRATING 4 MG TAB PO PRN (02:49)
[2018-10-13] MEDS ORDERED: ONDANSETRON 4 MG/2 ML VIAL IVP PRN (02:49)
[2018-10-13] MEDS ORDERED: IPRATROPIUM/ALBUTEROL 3 ML DEYVIAL IH ONE (02:52)
--- NOTE | 2018-10-13 03:20 | PDGENHP ---
History and Physical - Chief Complaint Dyspnea - History of Present Illness 73 yo F w/ AF and HTN presents with ongoing dyspnea. The patient was admitted here from 10/08-10/10 with the same symptoms. During that stay here work-up was essentially unremarkable including CXR, BNP, echocardiogram. There was some question of possible ILD so she was discharged home with recommendation for outpatient pulmonology follow up, PFTs, and high res CT for ILD. After returning home, however, her symptoms returned unchanged. While in the ED her O2 sat was noted to drop into the 70's with ambulation. This corrected well with 2 L O2. She has had a runny nose but denies other infectious symptoms such as fevers and chills. She also denies chest pain, palpitations, wheezing, orthopnea, and PND. Case discussed with ED physician Dr. Freire; records reviewed and summarized above. History Information - Allergies/Home Medication List Allergies/Adverse Reactions: latex Allergy (Verified 10/08/18 07:24) Rash Home Medications: Atorvastatin Calcium [Lipitor 20 mg (*)] 20 mg PO DAILY 01/17/18 [Last Taken 07/27] Brimonidine 0.2% [Alphagan 0.2%] 1 drops LEFTEYE BID 01/17/18 [Last Taken ] Citalopram [CeleXA 20 MG] 20 mg PO DAILY 01/17/18 [Last Taken 01/16/18] Diltiazem HCl [Cartia XT 240mg] 240 mg PO DAILY 01/17/18 [Last Taken 01/17/18] Folic Acid [Folic Acid 1 MG (*)] 1 mg PO DAILY 01/17/18 [Last Taken 01/17/18] Glimepiride [Amaryl] 4 mg PO BID 01/17/18 [Last Taken 01/16/18] Herbals/Supplements -Info Only 1 ea PO DAILY 01/17/18 [Last Taken 01/17/18] Losartan Potassium [Cozaar 50 mg (*)] 50 mg PO DAILY 01/17/18 [Last Taken ] Omeprazole 40 mg PO DAILY 01/17/18 [Last Taken 01/17/18] Propafenone HCl [Rythmol 150mg (*)] 150 mg PO BID 01/17/18 [Last Taken 01/17/18 09:00] Warfarin Sodium 3 mg PO MOTUTHSA@1600 01/17/18 [Last Taken 10/07/18] Warfarin Sodium [Coumadin] 6 mg PO SUWEFR@1600 01/17/18 [Last Taken 10/06/18] metFORMIN HCL [Glucophage 500 mg (*)] 500 mg PO BID 01/17/18 [Last Taken ] Loperamide HCl [Imodium 2 mg (*)] 2 - 4 mg PO PRN PRN 10/08/18 [Last Taken Unknown] Melatonin [Melatonin 3 MG (*)] 3 mg PO HS 10/08/18 [Last Taken Unknown] I have personally reviewed and updated: family history, medical history - Past Medical History atrial fibrillation, hypertension, hyperlipidemia - Surgical History Reports: ablation, cholecystectomy - Family History Positive for: CAD Additional family history: CHF - Social History Smoking Status: Former smoker Review of Systems Review of Systems: ROS: 10pt was reviewed & negative except for what was stated in HPI & below Physical Exam Physical Exam: Temp Pulse Resp BP Pulse Ox 36.4 C 78 30 H 174/73 H 93 10/13/18 03:03 10/13/18 02:53 10/13/18 02:53 10/13/18 02:53 10/13/18 02:53 O2 (L/minute) 2 Constitutional: no apparent distress, appears nourished Eyes: PERRL, EOMI Ears, Nose, Mouth, Throat: moist mucous membranes, no oral mucosal ulcers Cardiovascular: regular rate and rhythym, no murmur, rub, or gallop Respiratory: reduced air movement, respiratory distress (Mild), No expiratory wheeze Gastrointestinal: normoactive bowel sounds, soft, non-tender abdomen Skin: warm, normal color Musculoskeletal: full muscle strength, no muscle tenderness Neurologic: AAOx3, CN II-XII Intact Psychiatric: interacting appropriately, not anxious Lab Data & Imaging Review 10/13/18 00:00 10/13/18 00:00 WBC 17.91 10^3/uL (3.80-9.50) H 10/13/18 00:00 RBC 3.51 10^6/uL (4.18-5.33) L 10/13/18 00:00 Hgb 12.5 g/dL (12.6-16.3) L 10/13/18 00:00 Hct 33.7 % (38.0-47.0) L 10/13/18 00:00 MCV 96.0 fL (81.5-99.8) 10/13/18 00:00 MCH 35.6 pg (27.9-34.1) H 10/13/18 00:00 MCHC 37.1 g/dL (32.4-36.7) H 10/13/18 00:00 RDW 15.6 % (11.5-15.2) H 10/13/18 00:00 Plt Count 292 10^3/uL (150-400) 10/13/18 00:00 MPV 8.3 fL (8.7-11.7) L 10/13/18 00:00 Neut % (Auto) 83.0 % (39.3-74.2) H 10/13/18 00:00 Lymph % (Auto) 9.6 % (15.0-45.0) L 10/13/18 00:00 [place] % (Auto) 5.4 % (4.5-13.0) 10/13/18 00:00 Eos % (Auto) 1.3 % (0.6-7.6) 10/13/18 00:00 Baso % (Auto) 0.3 % (0.3-1.7) 10/13/18 00:00 Nucleat RBC Rel Count 0.0 % (0.0-0.2) 10/13/18 00:00 Absolute Neuts (auto) 14.85 10^3/uL (1.70-6.50) H 10/13/18 00:00 Absolute Lymphs (auto) 1.72 10^3/uL (1.00-3.00) 10/13/18 00:00 Absolute Monos (auto) 0.97 10^3/uL (0.30-0.80) H 10/13/18 00:00 Absolute Eos (auto) 0.24 10^3/uL (0.03-0.40) 10/13/18 00:00 Absolute Basos (auto) 0.05 10^3/uL (0.02-0.10) 10/13/18 00:00 Absolute Nucleated RBC 0.00 10^3/uL (0-0.01) 10/13/18 00:00 Immature Gran % 0.4 % (0.0-1.1) 10/13/18 00:00 Immature Gran # 0.08 10^3/uL (0.00-0.10) 10/13/18 00:00 PT 19.7 SEC (12.0-15.0) H 10/13/18 00:18 INR 1.66 (0.83-1.16) H 10/13/18 00:18 APTT 27.5 SEC (23.0-38.0) 10/13/18 00:18 Sodium 140 mEq/L (135-145) 10/13/18 00:00 Potassium 3.8 mEq/L (3.5-5.2) 10/13/18 00:00 Chloride 107 mEq/L (97-110) 10/13/18 00:00 Carbon Dioxide 24 mEq/l (22-31) 10/13/18 00:00 Anion Gap 9 mEq/L (6-14) 10/13/18 00:00 BUN 16 mg/dL (7-23) 10/13/18 00:00 Creatinine 0.9 mg/dL (0.6-1.0) 10/13/18 00:00 Estimated GFR > 60 10/13/18 00:00 Glucose 110 mg/dL (70-100) H 10/13/18 00:00 Calcium 9.1 mg/dL (8.5-10.4) 10/13/18 00:00 Magnesium 1.6 mg/dL (1.6-2.3) 10/13/18 00:00 Total Bilirubin 2.1 mg/dL (0.1-1.4) H 10/13/18 00:00 Conjugated Bilirubin 0.5 mg/dL (0.0-0.5) 10/13/18 00:00 Unconjugated Bilirubin 1.6 mg/dL (0.0-1.1) H 10/13/18 00:00 AST 14 IU/L (14-46) 10/13/18 00:00 ALT 21 IU/L (9-52) 10/13/18 00:00 Alkaline Phosphatase 106 IU/L (38-126) 10/13/18 00:00 POC Troponin I 0.02 ng/mL (0.00-0.08) 10/12/18 23:55 NT-Pro-B Natriuret Pep 366 pg/mL (0-450) 10/13/18 00:00 Total Protein 6.8 g/dL (6.3-8.2) 10/13/18 00:00 Albumin 4.0 g/dL (3.5-5.0) 10/13/18 00:00 Imaging Review: CTPE Prelim NO PE LAD CAD L lower pole thyroid mass called Anaya at 1:15 am Visualized and Interpreted EKG results: Yes EKG Interpretation: Positive for: normal sinsus rhythm, other (Incomplete RBBB) Assessment & Plan Assessment: 73 yo F w/ hx of AF and HTN presents with dyspnea and hypoxia of unclear etiology. Plan: 1. AHRF - Presenting as persistent dyspnea; hypoxic to the 70's on ambulation while in the ED. This is a similar presentation to recent admission when her work-up was mostly unremarkable including CXR and TTE. Nuclear stress test in April of 2017 was also normal. She has no prior history of pulmonary disease but there has been some concern for ILD in the past, although this has not been formally diagnosed. - Admit for observation - CTPE negative for PE, await final read for further details (No obvious abnormality on my review aside from possible bronchiectasis) - Monitor on telemetry - Albuterol PRN for now - O2 PRN to maintain O2 sats>89% - Pulmonary consult in the morning to direct further evaluation (previously planned for outpatient PFTs and high res CT) 2. Leukocytosis - Unclear etiology; possibly reactive to severe dyspnea. This was noted during recent admission as well and resolved without intervention. - Observe off of antibiotics - Will check procalcitonin 3. pAF - In NSR on admission. Continue home medications pending reconciliation. - warfarin pharmacy to dose - Daily INR 4. HTN - Continue home medications pending reconciliation 5. DM - Continue oral medications Diet - Regular Code - Full Ppx - warfarin pharmacy to dose Dispo - Admit under observation status
[2018-10-13] MEDS ORDERED: ALBUTEROL 3 ML DEYVIAL IH PRN (03:25)
[2018-10-13 08:26] LABS: PLATELET COUNT 225 10^3/uL (150-400)
--- NOTE | 2018-10-13 11:05 | HOSPPROG ---
Hospitalist Progress Note Assessment/Plan: 73 yo F w/ hx of AF and HTN presents with dyspnea and hypoxia of unclear etiology. *acute hypoxemic respiratory failure -CTA non revealing in regards to a PE -she was dc on 10/10 w same symptoms -poss ILD -will ask Dr Vega to evaluate/he will see her later today -prior w/u of echo, bnp, chest xray unremarkable *sore throat -Cepacol lozenges *leukocytosis *pAF -OAC (subtherapeutic) *htn * DM *left lower thyroid pole nodule -will get an ultrasound and thyroid studies *Atherosclerosis noted on CT *plan; ultrasound of thyroid, Dr Vega to see, > 30 minutes f/u w Hope and arranging care. Subjective: Hope is concerned something is wrong, has a sore throat but feels better this afternoon. Objective: Vital Signs Temp Pulse Resp BP Pulse Ox 36.9 C 74 20 157/73 H 96 10/13/18 07:43 10/13/18 07:43 10/13/18 07:43 10/13/18 07:43 10/13/18 07:43 Laboratory Results 10/13/18 07:48 10/13/18 07:48 10/12/18 10/13/18 10/14/18 05:59 05:59 05:59 Intake Total 1000 Balance 1000 PT 19.7 SEC (12.0-15.0) H 10/13/18 00:18 INR 1.66 (0.83-1.16) H 10/13/18 00:18 - Physical Exam Constitutional: no apparent distress, appears nourished Eyes: PERRL Ears, Nose, Mouth, Throat: hearing normal Cardiovascular: regular rate and rhythym Respiratory: no respiratory distress, reduced air movement Skin: warm Musculoskeletal: full muscle strength Neurologic: AAOx3 Psychiatric: interacting appropriately ICD10 Worksheet Patient Problems: Problems Problem Status Onset ORTEGA (dyspnea on exertion) Acute Dyspnea Acute Hypoxia Acute Diarrhea Acute Hypoxemia Acute Palpitations Acute
[2018-10-13] MEDS ORDERED: LOPERAMIDE HCL 2 MG CAP PO PRN (11:11)
--- NOTE | 2018-10-13 11:24 | ASMTCMCOM ---
CM Note CM Note Notes: Pt readmitted for same symptoms, work up for possible interstitial lung disease. May need to dc with O2, PT/OT to eval but seems to ambulate independently. DC needs uncertain, CM w/f. DC Plan: TBD Date Signed: 10/13/2018 11:23 AM Electronically Signed By:Alycia Wren RN
[2018-10-13] MEDS: GLIMEPIRIDE 2 MG TAB PO SCH ×2 (11:42→21:35)
[2018-10-13] MEDS: PROPAFENONE HCL 150 MG TAB PO SCH ×2 (11:42→21:36)
[2018-10-13] MEDS: CITALOPRAM 20 MG TAB PO SCH (11:42)
[2018-10-13] MEDS: LOSARTAN POTASSIUM 50 MG TAB PO SCH (11:43)
[2018-10-13] MEDS: DILTIAZEM XR 240 MG CAP PO SCH (11:43)
[2018-10-13] MEDS: FOLIC ACID 1 MG TAB PO SCH (11:43)
[2018-10-13] MEDS: CEPACOL LOZENGE PO PRN ×2 (15:34→21:37)
[2018-10-13] MEDS ORDERED: WARFARIN SODIUM 3 MG TAB PO SCH (16:00)
[2018-10-13] MEDS: ACETAMINOPHEN 325 MG TAB PO PRN (21:36)
[2018-10-13] MEDS: MELATONIN 3 MG TAB PO SCH (21:36)
[2018-10-13] MEDS: BRIMONIDINE 0.2% 5 ML OPHT.BTL LEFTEYE SCH (21:37)
[2018-10-14 05:39] LABS: PLATELET COUNT 233 10^3/uL (150-400)
[2018-10-14 05:51] LABS: INR 1.93 (0.83-1.16); PROTIME(PATIENT) 22.1 SEC (12.0-15.0)
[2018-10-14] MEDS ORDERED: Herbals/Supplements -Info Only PO SCH (09:00)
[2018-10-14] MEDS: BRIMONIDINE 0.2% 5 ML OPHT.BTL LEFTEYE SCH ×2 (10:03→22:02)
[2018-10-14] MEDS: PANTOPRAZOLE SODIUM 40 MG TAB PO SCH (10:03)
[2018-10-14] MEDS: FOLIC ACID 1 MG TAB PO SCH (10:03)
[2018-10-14] MEDS: LOSARTAN POTASSIUM 50 MG TAB PO SCH (10:03)
[2018-10-14] MEDS: DILTIAZEM XR 240 MG CAP PO SCH (10:03)
[2018-10-14] MEDS: CITALOPRAM 20 MG TAB PO SCH (10:04)
[2018-10-14] MEDS: PROPAFENONE HCL 150 MG TAB PO SCH ×2 (10:04→22:00)
[2018-10-14] MEDS: GLIMEPIRIDE 2 MG TAB PO SCH ×2 (10:04→22:00)
[2018-10-14] MEDS: ATORVASTATIN CALCIUM 20 MG TAB PO SCH (10:04)
--- NOTE | 2018-10-14 13:35 | HOSPPROG ---
Hospitalist Progress Note Assessment/Plan: 73 yo F w/ hx of AF and HTN presents with dyspnea and hypoxia of unclear etiology. *acute hypoxemic respiratory failure -CTA non revealing in regards to a PE -she was dc on 10/10 w same symptoms - reviewed her care w Dr Vega, patient likely has fluid overload; Lasix IV x one now, HCTZ to start tomorrow -prior w/u of echo, bnp, chest xray unremarkable -her spirometry shows obstruction, she didn't really respond to the bronchodilator *mild pulm edema -diuretics -will need home O2 *sore throat -Cepacol lozenges -resolved *leukocytosis *pAF -OAC (subtherapeutic) *htn -still high on home meds -had been on HCTZ in the past; resumed * DM *left lower thyroid pole nodule -ultrasound done, will need to get OP biopsy -Thyroid studies stable -reviewed findings w the patient *Atherosclerosis noted on CT *plan; Will see how Hope responds to the IV Lasix. Will need to monitor overnight and see if she improves. She has been on HCTZ in the past and will resume this. Appreciate Dr Vega's involvement. Subjective: Hope is feeling better, but is concerned about going home and needing to return to the ER. Objective: Vital Signs Temp Pulse Resp BP Pulse Ox 36.8 C 85 16 154/77 H 93 10/14/18 11:24 10/14/18 11:30 10/14/18 11:24 10/14/18 11:24 10/14/18 12:05 Laboratory Results 10/14/18 04:40 10/13/18 07:48 10/13/18 10/14/18 10/15/18 05:59 05:59 05:59 Intake Total 1000 600 Balance 1000 600 PT 22.1 SEC (12.0-15.0) H 10/14/18 04:40 INR 1.93 (0.83-1.16) H 10/14/18 04:40 - Physical Exam Constitutional: no apparent distress, not in pain, obese Eyes: PERRL Ears, Nose, Mouth, Throat: hearing normal Cardiovascular: regular rate and rhythym, systolic murmur (soft) Respiratory: no respiratory distress, other (rhales at bases) Skin: warm Musculoskeletal: full muscle strength Neurologic: AAOx3 Psychiatric: interacting appropriately ICD10 Worksheet Patient Problems: Problems Problem Status Onset ORTEGA (dyspnea on exertion) Acute Dyspnea Acute Hypoxia Acute Diarrhea Acute Hypoxemia Acute Palpitations Acute
[2018-10-14] MEDS ORDERED: FUROSEMIDE 20 MG/2 ML VIAL IVP ONE (14:19)
[2018-10-14] MEDS ORDERED: WARFARIN SODIUM 3 MG TAB PO SCH (16:00)
--- NOTE | 2018-10-14 17:34 | GCON ---
PULMONARY/CRITICAL CARE CONSULTATION DATE OF CONSULTATION: 10/14/2018 REFERRING PHYSICIAN: Madelin Moss NP REASON FOR REFERRAL: Evaluation and management of hypoxemia and dyspnea. HISTORY: The patient is a 73-year-old woman, who states that she was in her usual state of good health when on 10/08/2018, she woke up at 4:00 in the morning and felt quite short of breath. In retrospect, she does recall that she has had a dry cough for a month or so prior to this. She had also stopped taking her HCTZ, she thinks, a month or 2 before this as well, and had been having some increased lower extremity edema. She was admitted to the hospital on 10/08 with the dyspnea, as well as an oxygen saturation of 78% on room air documented in the emergency department (the patient reports 74% at home). She underwent an evaluation in the hospital that was unremarkable. A chest x-ray and BNP were essentially normal. An echocardiogram showed a normal left ventricular ejection fraction. The plan was to follow up with Pulmonology with a CT scan and pulmonary function tests. The patient went home without supplemental oxygen on 10/09 but presented back to the emergency department yesterday, again, reporting oxygen saturations in the 70s but this time requiring ambulation for her oxygen saturations to fall. She was feeling dyspneic with exertion with this. She denies any wheezing, orthopnea, or chest pain. Her cough is essentially unchanged, as is her mild lower extremity edema. Here in the hospital, oxygen saturations up in 90s on 0.5-1 L/min of oxygen. PAST MEDICAL HISTORY: 1. Hypertension. 2. History of atrial fibrillation. 3. Hyperlipidemia. MEDICATIONS AT THE TIME OF ADMISSION: Include atorvastatin, citalopram, diltiazem, Amaryl, losartan, omeprazole, propafenone, warfarin, metformin, and melatonin. ALLERGIES: Latex. SOCIAL HISTORY: The patient has a trivial history of smoking. 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 FAMILY HISTORY: Unremarkable. REVIEW OF SYSTEMS: A 10-point review of systems adds nothing to the History of Present Illness with the exception of the patient reported snoring, as well as witnessed apneas. PHYSICAL EXAMINATION: GENERAL: The patient is awake, alert, in no acute distress. VITAL SIGNS: Blood pressure is 154/77. Her systolic blood pressures have been 131-208 during the hospitalization, often above 150. Heart rate is 85. Oxygen saturations are 86% on room air and 93% to 98% on 1 L of nasal cannula oxygen. HEENT: Normocephalic and atraumatic. No icterus. NECK : No JVD. Trachea is midline. CHEST: She has some faint rales in both bases. CARDIAC: Regular rate and rhythm without murmur. ABDOMEN: Soft, nontender. Bowel sounds are present. EXTREMITIES: No clubbing or cyanosis. She has 1+ lower extremity edema. NEURO: The patient is awake and alert. She has no gross motor or sensory deficits. LABORATORIES: White blood count is 8.0, hemoglobin is 10.6, down from 12.6 at the time of her initial hospitalization. Her platelet count is 233. An INR is 1.9. An arterial blood gas on 10/08, demonstrates a pH of 7.43 with a pO2 of 82 , and a CO2 of 37 on 2 L of oxygen. Chemistry group is remarkable only for a blood glucose of 142. A procalcitonin is 0.13. A BNP was 366 on admission, up from 277 at her prior hospitalization. A chest x-ray is normal with no infiltrates or effusions. Some mild interstitial changes seen back in January have resolved. A CT scan of the chest is negative for pulmonary emboli. There are no interstitial lung disease, effusions, or infiltrate. Images reviewed by me. The electrocardiogram demonstrates sinus rhythm. A respiratory panel was negative. An echocardiogram done on October 08 shows normal global systolic function with an ejection fraction of 70% to 75%. There is mild concentric LV hypertrophy. There is trivial tricuspid valve regurgitation. The RVSP appears to be normal. Spirometry shows mild fixed obstruction with posssible superimposed restriction, FEV1 70%->69% with BD, FVC 83%. ASSESSMENT: 1. Hypoxemia. The patient presented with significant hypoxemia, both at rest and with exertion, in association with dyspnea. This corrected with oxygen, and the patient was discharged, but then readmitted with a similar problem, although her hypoxemia did not seem quite as profound and was occurring primarily with exertion. Her CT scan really excludes any significant pulmonary parenchymal disease. Pertinent findings do include some increased lower extremity edema since stopping HCTZ, as well as some basilar rales. Her BNP is in the high-normal range, and she has some left ventricular hypertrophy. Although she does not appear to be in florid congestive heart failure, I suspect that her hypoxemia may be due to some mild pulmonary interstitial edema. It is possible that this also contributed to her chest x-ray findings and mild hypoxemia during her hospitalization in January. Her spirometry, during her last hospitalization, showed very mild obstruction that did not reverse, as well as possible superimposed restriction. She does not have any history of asthma/chronic obstructive pulmonary disease. The mild obstruction could be due to interstitial/airway edema. An infectious component of reactive airways disease perhaps triggered by infection could also explain this, but the patient does not really have any symptoms to support this. 2. Hypertension. The patient has significant hypertension here in the hospital despite several medications. This could be contributing to some diastolic dysfunction/congestive heart failure. 3. Probable obstructive sleep apnea. The patient has snoring, witnessed apneas , and hypertension that is requiring several agents and still not well controlled, as well as atrial fibrillation, all of which are risk factors for untreated sleep apnea. RECOMMENDATIONS: 1. Give a dose of Lasix now. 2. Restart hydrochlorothiazide as taken as an outpatient. 3. Discharged on supplemental oxygen for hypoxemia with congestive heart failure/pulmonary edema that has not responded to appropriate medications. 4. Followup in my office with myself or Dr. Siddiqui in a few weeks. At that time, we can pursue overnight oximetry, ensure that her blood pressure is better controlled and likely pursue a sleep study to evaluate for sleep apnea. /[id number]/MODL MTDD
--- NOTE | 2018-10-14 20:51 | PDMN ---
Medical Necessity Medical necessity: Pt meets IP criteria as of 10/14/2018 per and [facility] PG-RF ( Respiratory Failure GRG); est los > 2 mn for ongoing tx and management of acute hypoxemic respiratory failure with pulmonary edema.
[2018-10-14] MEDS: CEPACOL LOZENGE PO PRN (22:00)
[2018-10-14] MEDS: MELATONIN 3 MG TAB PO SCH (22:00)
[2018-10-14] MEDS: ACETAMINOPHEN 325 MG TAB PO PRN (22:00)
[2018-10-15 06:09] LABS: INR 1.76 (0.83-1.16); PROTIME(PATIENT) 20.6 SEC (12.0-15.0)
--- NOTE | 2018-10-15 07:44 | CPEKG ---
Test Reason : OPEN Blood Pressure : / mmHG Vent. Rate : 075 BPM Atrial Rate : 075 BPM P-R Int : 160 ms QRS Dur : 084 ms QT Int : 396 ms P-R-T Axes : 055 -42 054 degrees QTc Int : 443 ms Sinus rhythm Probable left atrial enlargement Left axis deviation Abnormal R-wave progression, early transition Confirmed by Joseph Sargent ([id number]) on 10/15/2018 7:44:16 AM Referred By: Confirmed By:Joseph Sargent
[2018-10-15] MEDS: DILTIAZEM XR 240 MG CAP PO SCH (08:43)
[2018-10-15] MEDS: GLIMEPIRIDE 2 MG TAB PO SCH (08:43)
[2018-10-15] MEDS: PROPAFENONE HCL 150 MG TAB PO SCH (08:43)
[2018-10-15] MEDS: CITALOPRAM 20 MG TAB PO SCH (08:43)
--- NOTE | 2018-10-15 08:43 | HOSPPROG ---
Hospitalist Progress Note Assessment/Plan: 73 yo F w/ hx of AF and HTN presents with dyspnea and hypoxia of unclear etiology. *acute hypoxemic respiratory failure -CTA non revealing in regards to a PE -she was dc on 10/10 w same symptoms - reviewed her care w Dr Vega, patient likely has fluid overload; Lasix IV x one now, HCTZ to start tomorrow -prior w/u of echo, bnp, chest xray unremarkable -her spirometry shows obstruction, she didn't really respond to the bronchodilator *mild pulm edema -diuretics -will need home O2 *sore throat -Cepacol lozenges -resolved *leukocytosis *pAF -OAC (subtherapeutic) *htn -still high on home meds -had been on HCTZ in the past; resumed * DM *left lower thyroid pole nodule -ultrasound done, will need to get OP biopsy -Thyroid studies stable -reviewed findings w the patient *Atherosclerosis noted on CT *plan: dc home w f/u w PCP and Dr Vega Subjective: Hope is feeling better today. Objective: Vital Signs Temp Pulse Resp BP Pulse Ox 36.4 C 71 16 181/74 H 95 10/15/18 08:00 10/15/18 08:00 10/15/18 08:00 10/15/18 08:00 10/15/18 08:00 PT 20.6 SEC (12.0-15.0) H 10/15/18 05:21 INR 1.76 (0.83-1.16) H 10/15/18 05:21 - Physical Exam Constitutional: no apparent distress, appears nourished Eyes: PERRL Ears, Nose, Mouth, Throat: hearing normal Cardiovascular: regular rate and rhythym Respiratory: no respiratory distress, rhonchi (few at left base) Skin: warm Musculoskeletal: full muscle strength Neurologic: AAOx3 Psychiatric: interacting appropriately ICD10 Worksheet Patient Problems: Problems Problem Status Onset ORTEGA (dyspnea on exertion) Acute Dyspnea Acute Hypoxia Acute Diarrhea Acute Hypoxemia Acute Palpitations Acute
[2018-10-15] MEDS: PANTOPRAZOLE SODIUM 40 MG TAB PO SCH (08:44)
[2018-10-15] MEDS: FOLIC ACID 1 MG TAB PO SCH (08:44)
[2018-10-15] MEDS: ATORVASTATIN CALCIUM 20 MG TAB PO SCH (08:44)
--- NOTE | 2018-10-15 08:45 | PDHOMEO2F ---
Home Oxygen Face to Face Home Orders: I certify that a physician or a nurse practitioner or physician's dental laboratory assistant has had a hfoa-ol-flis encounter with this patient on the date of this order due to the diagnosis listed, which relates to the primary reason the patient requires home oxygen. Alternative treatments have been tried, or considered, and deemed ineffective. It is anticipated that supplemental oxygen will result in improvement with treatment. Home oxygen qualifying diagnosis: diastolic chf Home oxygen secondary diagnosis: pulmonary edema SpO2 on room air (%): 76% Frequency of home oxygen needed: continuous Home oxygen liters per minute: 2 Home oxygen delivery device: nasal cannula Concentrator: Yes E-tanks for mobility and back up: No I certify that, based on these findings, the home oxygen is medically necessary for this patient for the following length of time. Length of time home oxygen needed: 99 years
[2018-10-15] MEDS ORDERED: HYDROCHLOROTHIAZIDE 25 MG TAB PO SCH (09:00)
[2018-10-15] MEDS: BRIMONIDINE 0.2% 5 ML OPHT.BTL LEFTEYE SCH (10:42)
[2018-10-15] MEDS: LOSARTAN POTASSIUM 50 MG TAB PO SCH (11:11)
[2018-10-15 11:13] VITALS: BP 133/69
--- NOTE | 2018-10-15 11:28 | GDS ---
DISCHARGE DIAGNOSES: 1. Acute hypoxemic respiratory failure. 2. Mild pulmonary edema. 3. Sore throat. 4. Leukocytosis. 5. Paroxysmal atrial fibrillation. 6. Hypertension. 7. Diabetes. 8. Left lower thyroid nodule that needs an outpatient biopsy. 9. Atherosclerosis noted on CT scan. HISTORY OF PRESENT ILLNESS: Briefly, the patient is a 73-year-old woman with atrial fibrillation and hypertension who presented to the emergency room with ongoing dyspnea. She was 1st admitted here en d september and was discharged on October 10 with similar symptoms. She had a workup with a chest x-ray, BNP, and echocardiogram, which were all noted to be stable. She had a CT-A on this admission , which was negative for a PE. She was seen and evaluated by Dr. Vega who thought there was a compo nent of some mild pulmonary edema. The patient had been on a diuretic and stopped a while back. Thi s is resumed. She is much improved. She will follow up with Dr. Vega in the outpatient setting. Of note, during her hospital care, it was noted that she had a thyroid nodule. A subsequent ultrasou nd was performed, which showed a large left thyroid nodule, a biopsy is recommended. I reviewed this with her and she will follow up with her primary care provider to get this done. HOSPITAL COURSE: 1. Acute hypoxemic respiratory failure, most likely secondary to mild pulmonary edema, much improved . 2. Sore throat, resolved. 3. Leukocytosis. White blood cell count has normalized yesterday from 17 to 8. She has been afebri le. 4. Paroxysmal atrial fibrillation. She is on oral anticoagulation and subtherapeutic. Did get her INR monitored. 5. Hypertension. Her blood pressure has been actually quite elevated during her stay. Hopefully, t he hydrochlorothiazide will help lower this. Followup with her PCP. 6. Diabetes, on oral agents. 7. Left lower thyroid pole nodule. Biopsy in the outpatient setting. 8. Atherosclerosis noted on CT. I recommended that she have her primary care provider refer her to Cardiology for further monitoring. DISCHARGE CONDITION: Stable. Blood pressure is 135/60, heart rate is 68, respiratory rate is 16, O2 saturation on 0.5 L 95%, temperature is 36.5 Celsius. DISCHARGE MEDICATIONS: Please see the EMR. DISCHARGE INSTRUCTIONS: 1. To stay on the hydrochlorothiazide. 2. Follow up with Dr. Vega. 3. If she develops fever, chills, shortness of breath, return to the ER. Greater than 30 minutes discharging and coordinating the patient's care. /[id number]/MODL
--- NOTE | 2018-10-15 14:55 | ASDISCHSUM ---
Discharge Information Plan Status:Home with No Needs Medically Cleared to Leave:10/14/2018 Discharge Date:10/15/2018 01:50 PM CM D/C Disposition:Home, Routine, Self-Care ADT D/C Disposition:Home, Routine, Self-Care Projected Discharge Date:10/15/2018 12:00 AM Transportation at D/C:Family Discharge Delay Reason: Follow-Up Date:10/15/2018 12:00 AM Discharge Slot:2 - 12:01 pm - 18:00 pm Final Diagnosis:Bilateral bronchopnemonia/Sepsis Placement Information Patient Contact Information Contact Name:ASHLEY Relationship:Daughter Address: Home Phone: City: [facility] Phone: [facility] Code: Email: Financial Information Financial Class:Medicare Primary Plan Desc:MEDICARE OUTPATIENT Primary Plan Number:[id number] Secondary Plan Desc:[employer]/M[employer] SUPPLEMENT Secondary Plan Number:[id number] Assessment Information [facility] CM Progress Note CM Note CM Note Notes: Pt readmitted for same symptoms, work up for possible interstitial lung disease. May need to dc with O2, PT/OT to eval but seems to ambulate independently. DC needs uncertain, CM w/f. DC Plan: TBD Date Signed: 10/13/2018 11:23 AM Electronically Signed By:Alycia Wren RN Intervention Information Intervention Type:JAIRON-Signed Date of Service:10/13/2018 03:03 PM Patient Type:Observation Staff Member:Adriana Hickey Hours: Discipline: Severity: Comment:
--- NOTE | 2018-10-15 14:55 | ASMTDCNOTE ---
Case Management Discharge Discharge Order Complete? Answers: Yes Patient to Obtain Answers: via Family Medications Transportation Arranged Answers: Family/Friends Family Notified Answers: Yes Discharge Comments Notes: CM met with patient prior to discharge, patient's daughter will pick her up today. Patient states she has support from daughter and friends at home. Patient states she understands she will discharge with home O2, she is working with RT. CM delivered IM, patient signed for receipt, IM placed in back of chart. Patient to discharge home independently and follow up as recommended. CM available to support if any further needs arise. Date Signed: 10/15/2018 02:55 PM Electronically Signed By:Barbara Arango
== END 2018-10-15 13:50 | disposition home or self-care (01) | DRG 189 ==
LOC: F3E 10-13 03:17 → OBSVTOIN 10-14 15:38
PROVIDERS: ADMIT Student in an Organized Health Care Education/Training Program; ATTEND Student in an Organized Health Care Education/Training Program
DX: J96.01 Acute respiratory failure with hypoxia (principal); J81.1 Chronic pulmonary edema; D72.829 Elevated white blood cell count, unspecified; E04.1 Nontoxic single thyroid nodule; I48.0 Paroxysmal atrial fibrillation; G47.33 Obstructive sleep apnea (adult) (pediatric); I25.10 Atherosclerotic heart disease of native coronary artery without angina pectoris; E78.5 Hyperlipidemia, unspecified; E11.9 Type 2 diabetes mellitus without complications; I10 Essential (primary) hypertension; Z87.891 Personal history of nicotine dependence
CPT/HCPCS: 84480-90; 84484-ER; 97161-GP; G0378; J1940; Q9967